=== PATIENT | male | born 1950 ===

== ENCOUNTER 2017-08-26 07:43 | Day surgery (SDC) | payer OTHER ==
[2017-08-21 10:48] VITALS: BMI 26.1
[2017-08-26] MEDS ORDERED: Lidocaine 2% Inj (20ml) ONE (08:05)
[2017-08-26] MEDS ORDERED: Verapamil 2 ML ONE (08:05)
[2017-08-26] MEDS ORDERED: Midazolam 2 MG/2 ML VIAL ONE ×3 (08:06→09:13)
[2017-08-26] MEDS ORDERED: Iodixanol 320 MG/ML 200 ML BOTTLE IV ONE (08:07)
[2017-08-26] MEDS ORDERED: Nitroglycerin 50mg in D5W 50 MG/250 ML BOTTLE IV ONE (08:07)
[2017-08-26 08:38] LABS: BLOOD UREA NITROGEN 18 mg/dL (7-21); CALCIUM 9.7 mg/dL (8.4-10.5); GFR AFRICAN-AMERICAN > 60; GFR NON-AFRICAN AMERICAN 55
[2017-08-26 08:41] LABS: BASO # 0.02 K/mm3 (0.0-2.0); BASO % 0.2 % (0.0-3.0); EOS # 0.1 (0.0-0.7); EOS % 1.2 % (1.5-5.0); GRAN # 6.21 (1.4-6.5); GRAN % 75.1 % (50.0-68.0); HEMOGLOBIN 14.5 g/dL (14.0-18.0); LYMPH # 1.6 (1.2-3.4); LYMPH % 19.6 % (22.0-35.0); MEAN CELL VOLUME 91.1 fl (80.0-105.0); MEAN CORPUSCULAR HEMOGLOBIN 30.8 pg (25.0-35.0); MEAN CORPUSCULAR HGB CONC 33.8 g/dl (31.0-37.0); MEAN PLATELET VOLUME 10.2 fl (7.0-11.0); MONO # 0.3 (0.1-0.6); MONO % 3.9 % (1.0-6.0); RBC 4.71 10^6/uL (3.5-6.1); RED CELL DISTRIBUTION WIDTH 14.3 % (11.5-14.5); WHITE BLOOD COUNT 8.3 10^3/ul (4.5-11.0)
[2017-08-26 08:47] VITALS: O2SAT 98
[2017-08-26] MEDS ORDERED: Adenosine 90 mg/30mL IV ONE (08:57)
[2017-08-26 09:10] LABS: INR 0.89 (0.93-1.08); PARTIAL THROMBOPLASTIN TIME 31.2 Seconds (25.1-36.5); PROTHROMBIN TIME 10.2 SECONDS (9.4-12.5)
[2017-08-26] MEDS ORDERED: Potassium Chloride 20 mEq ER Tab PO ONE (09:34)
[2017-08-26] MEDS ORDERED: Bacitracin 500 Units/gm Oint Foilpak UD TOP ONE (09:46)
--- NOTE | 2017-08-26 10:13 | CARDCATH ---
PROCEDURE DATE: 08/26/2017 INDICATIONS: Mr. Soto Morrison is a 67-year-old male with history of CAD, status post PTCA x3 done in [facility], last one was in 2010, hypertension, dyslipidemia, vitamin D deficiency, referred for evaluation of an abnormal stress test by Dr. Francesco Avila. The patient underwent a nuclear stress test by Dr. Avila showing anterior wall reversible defect and anterior wall scar. PROCEDURE PERFORMED: Left heart catheterization with selective left and right coronary angiogram via left distal radial approach, 6-[place] left distal radial arterial access, percutaneous transluminal coronary angioplasty stenting of mid right coronary artery, 80% stenosis, deployment of 3 x 18 mm [place] drug-eluting stent, lesion reduction from 80% down to 0% BEN 3 flow, wrist band for hemostasis. TECHNIQUES OF PROCEDURE: After obtaining informed consent, the patient was brought to the cardiac catheterization suite in post-absorptive, non-sedated state. The patient was prepped and draped in the usual sterile fashion. A 2% lidocaine was used for infiltration of anesthesia. Using modified Seldinger technique, a 6-[place] sheath was introduced into the left distal radial artery. Subsequently over an exchange length J-wire, JR-4 and JL-4 diagnostic catheter were used to engage the right and left coronary systems. Angiograms were obtained in different orthogonal views. Subsequently over exchange length J-wire, a pigtail catheter advanced into the LV. LV gram was obtained in the OLIVERA view. Hemodynamics were obtained and a pullback gradient was noted. HEMODYNAMICS: Left ventricular end diastolic pressure was 18 mmHg. There was no gradient noted on the aortic valve pullback. There was no AI. No MR. Left ventricular ejection fraction estimated to be 40% with anterior wall hypokinesis. CORONARY ANATOMY: Left main large sized vessel, bifurcates into the left anterior descending and left circumflex coronary artery. Left circumflex is a large sized vessel, gives off a large obtuse marginal branch with nonobstructive disease. Mild 30-40% mid and distal stenosis. Left anterior descending artery has a proximal stent, which is patent. There is a moderate stenosis past the stent at the bifurcation of the diagonal about 50%. The patient's LAD is moderate size past the diagonal branch, gives off 2 small diagonal branches with mild 30-40% stenosis. Right coronary artery, large size vessel. Has mid 80% stenosis. Right dominant circulation. TECHNIQUES OF INTERVENTION: After reviewing the above angiographic findings, it was decided to intervene on the mid RCA 80% stenosis, which was the site of the abnormal stress test involving the anterior wall. A [place] wire was used to cross the lesion and was parked into the distal RCA. The lesion was pre-dilated by a 2.5 mm x 15 mm long balloon and was subsequently stented with a 3 x 18 mm Reg[place] drug-eluting stent with subsequent lesion reduction from 80% down to 0% and BEN 3 flow. Final angiogram showed good lesion reduction and BEN 3 flow. IMPRESSION: Successful revascularization of mid right coronary artery, 80% angiographic stenosis, deployment of 3 x 18 mm [place] drug eluting stent. RECOMMENDATIONS: The patient can be discharged home in 4 hours. Dual antiplatelet therapy for at least 1 year. Guideline-directed medical therapy for CAD. The patient is to follow up with Dr. Avila, who is his primary mercury purifier. Thank you, Dr. Avila for letting me participate in the care of your patient. eRgis Lopez MD cc: Francesco Avila MD.
[2017-08-26 12:20] VITALS: TEMP 98.5
[2017-08-26] MEDS ORDERED: Bacitracin 500 Units/gm Oint Foilpak UD ONE (14:05)
[2017-08-26 14:43] VITALS: RESP 18
[2017-08-26 14:45] VITALS: BP 118/73
[2017-08-26 16:29] VITALS: PULSE 78
[2017-08-26] MEDS ORDERED: Cholecalciferol 1,000 INTLU TAB PO SCH (18:00)
--- NOTE | 2017-08-26 20:29 | CARD ---
APPROVED REPORT EKG Measurement Heart [id number] MD [id number] <Conclusion> Normal sinus rhythm Left anterior fascicular block Anteroseptal infarct, age undetermined Abnormal ECG
== END 2017-08-26 17:55 | disposition home or self-care (01) ==
LOC: CATH 07:43 → 2RNO 10:02 → CATH 17:55
PROVIDERS: ATTEND Internal Medicine Interventional Cardiology
DX: I25.10 Atherosclerotic heart disease of native coronary artery without angina pectoris (principal); I10 Essential (primary) hypertension; E78.5 Hyperlipidemia, unspecified; E55.9 Vitamin D deficiency, unspecified; Z95.5 Presence of coronary angioplasty implant and graft
CPT/HCPCS: 36415; 80048; 85025; 85175; 85610; 85730; 86850; 86900; 93005; 93458; 99152; C1725; C1769 ×2; C1874; C1887; C1894; C9600; J0153; J1644 ×2; J2250; J3010; J7030; Q9966

== ENCOUNTER 2018-07-28 07:53 | Outpatient (CLI) | payer OTHER | END 2018-07-28 07:54 | disposition home or self-care (01) | LOC: LAB 07:53 ==